=== PATIENT | male | born 2000 | race Caucasian/White ===

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

== ENCOUNTER → 2018-02-12 | Outpatient (CLI) | payer OTHER ==
[2016-04-23 01:57] VITALS: BP 132/72
[2018-02-12 17:12] LABS: ALBUMIN 4.6 g/dL (3.5-5.0); CALCIUM 9.3 mg/dL (8.4-10.2); TOTAL BILIRUBIN 2.2 mg/dL (0.2-1.3); TOTAL PROTEIN 7.4 g/dL (6.3-8.2)
[2018-02-12 18:19] LABS: EOS # 0.2 (0.04-0.40); EOS % 3.3 % (0.0-4.0); HEMATOCRIT 43.4 % (36.0-47.0); LYMPH# 1.5 (1.50-4.00); MEAN CELL VOLUME 90 fl (78-95); MEAN CORPUSCULAR HEMOGLOBIN 31 pg (26-32); MEAN CORPUSCULAR HGB CONC 35 g/dL (33-37); MEAN PLATELET VOLUME 10.1 fl (7.4-10.4); MONO # 0.5 (0.20-0.80); NEU # 4.4 (1.40-6.50); PLATELET COUNT 228 K/mm3 (130-400); RED BLOOD COUNT 4.81 M/mm3 (4.20-5.60); RED CELL DISTRIBUTION WIDTH 12.6 % (11.5-14.5); WHITE BLOOD COUNT 6.6 K/mm3 (4.8-10.8)
== END ==
LOC: LAB 16:47
PROVIDERS: Internal Medicine
DX: Z00.00 Encounter for general adult medical examination without abnormal findings (principal)

== ENCOUNTER → 2018-10-08 | Outpatient (CLI) | payer OTHER ==
[2016-04-23 01:57] VITALS: BP 132/72
== END ==
LOC: LAB 17:08
DX: L03.012 Cellulitis of left finger (principal)

== ENCOUNTER 2019-05-30 10:03 | Emergency (ER) | payer BC, OTHER ==
[2019-05-30] MEDS ORDERED: DESYREL50 MG PO (10:11)
[2019-05-30 10:33] LABS: HEMATOCRIT 47.5 % (36.0-47.0); HEMOGLOBIN 16.3 g/dL (12.5-16.1); MEAN CELL VOLUME 89 fl (78-95); MEAN CORPUSCULAR HEMOGLOBIN 31 pg (26-32); MEAN CORPUSCULAR HGB CONC 34 g/dL (33-37); MEAN PLATELET VOLUME 9.6 fl (7.4-10.4); PLATELET COUNT 223 K/mm3 (130-400); RED BLOOD COUNT 5.35 M/mm3 (4.20-5.60); RED CELL DISTRIBUTION WIDTH 12.6 % (11.5-14.5); WHITE BLOOD COUNT 5.1 K/mm3 (4.8-10.8)
[2019-05-30 10:41] LABS: ALBUMIN 4.9 g/dL (3.5-5.0); POTASSIUM 3.6 mmol/L (3.5-5.1)
[2019-05-30 10:43] LABS: CALCIUM 9.9 mg/dL (8.3-10.5); LYMPHOCYTE 30 % (20-51); MONOCYTE 10 % (1-10); NEUTROPHILS 54 % (42-75)
[2019-05-30 10:44] LABS: TOTAL PROTEIN 7.4 g/dL (6.4-8.3)
[2019-05-30 10:46] LABS: TOTAL BILIRUBIN 1.8 mg/dL (0.2-1.2)
[2019-05-30 10:51] LABS: MAGNESIUM 1.96 mg/dL (1.70-2.20)
[2019-05-30 13:34] VITALS: BP 113/63
== END 2019-05-30 13:20 | disposition home or self-care (01) ==
LOC: ED 10:03
PROVIDERS: Nurse Practitioner Primary Care
DX: F41.9 Anxiety disorder, unspecified (principal); T43.215A Adverse effect of selective serotonin and norepinephrine reuptake inhibitors, initial encounter; G47.00 Insomnia, unspecified; Z88.2 Allergy status to sulfonamides

== ENCOUNTER 2019-10-21 20:20 | Emergency (ER) | payer BC, OTHER ==
[~2019-10-21] VITALS: Ht 172.7 cm; Wt 68.2 kg
[~2019-10-21 20:20] MED LIST changes: +DESYREL50 MG PO
[2019-10-21] MEDS ORDERED: FLUOXETINE HCL10 MG PO (20:28)
[2019-10-21 21:02] LABS: HEMATOCRIT 41.9 % (42.0-52.0); HEMOGLOBIN 14.4 g/dL (13.5-18.0); MEAN CELL VOLUME 91 fl (78-100); MEAN CORPUSCULAR HEMOGLOBIN 31 pg (27-31); MEAN CORPUSCULAR HGB CONC 34 g/dL (33-37); MEAN PLATELET VOLUME 9.3 fl (7.4-10.4); PLATELET COUNT 179 K/mm3 (130-400); RED BLOOD COUNT 4.62 M/mm3 (4.20-5.60); RED CELL DISTRIBUTION WIDTH 12.3 % (11.5-14.5); WHITE BLOOD COUNT 18.9 K/mm3 (4.8-10.8)
[2019-10-21 21:15] LABS: ALBUMIN 4.6 g/dL (3.5-5.0); POTASSIUM 3.9 mmol/L (3.5-5.1)
[2019-10-21 21:16] LABS: CALCIUM 9.4 mg/dL (8.3-10.5)
[2019-10-21 21:18] LABS: TOTAL PROTEIN 7.3 g/dL (6.4-8.3)
[2019-10-21 21:19] LABS: TOTAL BILIRUBIN 4.3 mg/dL (0.2-1.2)
[2019-10-21 21:40] LABS: LYMPHOCYTE 5 % (20-51); NEUTROPHILS 84 % (42-75)
[2019-10-21 21:41] LABS: MONOCYTE 11 % (3-10)
[2019-10-21 21:42] LABS: PH-URINE 7.5 (5.0 - 8.0); URINE APPEARANCE CLEAR; URINE COLOR YELLOW; URINE GLUCOSE NEGATIVE (NEGATIVE); URINE KETONE 3+ (NEGATIVE); URINE PROTEIN(semi-quant) TRACE mg/dL (NEGATIVE)
[2019-10-21 21:43] LABS: URINE BILIRUBIN 2+ (NEGATIVE); URINE BLOOD TRACE (NEGATIVE); URINE LEUKOCYTE ESTERASE NEGATIVE (NEGATIVE); URINE NITRATE NEGATIVE (NEGATIVE); URINE UROBILINOGEN 4 mg/dL (NORMAL); URINE WBC 0-1 /hpf (0-3)
[2019-10-21] MEDS ORDERED: AMOXIL500 M1 PO (23:16)
[2019-10-21 23:38] VITALS: BP 120/58
== END 2019-10-21 23:38 | disposition home or self-care (01) ==
LOC: ED 20:20
PROVIDERS: Nurse Practitioner
DX: J02.9 Acute pharyngitis, unspecified (principal); E80.4 Gilbert syndrome; F17.290 Nicotine dependence, other tobacco product, uncomplicated
CPT/HCPCS: J1100; J1885; J7030